=== PATIENT | female | born 1935 | race Caucasian/White ===

== ENCOUNTER 2017-04-03 15:44 | Emergency (ER) | payer MEDICARE ==
[2017-04-03 15:52] VITALS: BP 138/83
--- NOTE | 2017-04-03 16:26 | XRAY Report ---
EXAM: LEFT WRIST RADIOGRAPHY EXAM DATE: 04/03/2017 04:07 PM. CLINICAL HISTORY: Fell on outstretched hand this morning. Pain and swelling. COMPARISON: None. TECHNIQUE: 4 views. FINDINGS: Bones: Fracture of the radial metaphysis with volar impaction. Articular extension noted. No other ac ely sh[place] traumatic or destructive bony abnormalities. Simple cyst noted in the lunate. Joints: Degenerative narrowing and sclerosis of the scaphomultangular joints and first carpometacarpa l joint. No subluxations. Soft Tissues: Calcification of the joint or fibrocartilage. IMPRESSION: Fracture of the radial metaphysis with mild volar impaction and with intra-articular exte nsion. [facility] Referring Provider Line: [phone] SITE ID: [id number]
--- NOTE | 2017-04-03 16:26 | XRAY Preliminary Report ---
Exam: XR WRIST 4 VIEW LT IMPRESSION: Fracture of the radial metaphysis with mild volar impaction and with intra-articular exte nsion. [facility] SITE ID: [id number]
--- NOTE | 2017-04-03 16:49 | ED Physician Documentation ---
PD HPI UPPER EXT INJURY - Stated complaint Stated Complaint: GLF/L WRIST INJ - Chief complaint Chief Complaint: Ext Problem - History obtained from History obtained from: Patient - History of Present Illness Location: Other (Simple trip and fall this morning injuring her left wrist, no other injuries. She has moderate pain but declines pain medication.) Review of Systems Constitutional: denies: Fever, Chills Cardiac: reports: Reviewed and negative Respiratory: reports: Reviewed and negative PD PAST MEDICAL HISTORY - Past Medical History Past Medical History: No - Past Surgical History Past Surgical History: Yes - Present Medications Home Medications: Ambulatory Orders Medication Instructions Recorded Confirmed No Known Home Medications [No 04/03/17 04/03/17 Known Home Medications] - Allergies Allergies/Adverse Reactions: Allergies Allergy/AdvReac Type Severity Reaction Status Date / Time Sulfa (Sulfonamide Allergy Unknown Verified 04/03/17 15:52 Antibiotics) - Social History Does the pt smoke?: No Smoking Status: Never smoker Does the pt drink ETOH?: No Does the pt have substance abuse?: No - Immunizations Immunizations are current?: Yes - POLST Patient has POLST: No PD ED PE NORMAL - Vitals Vital signs reviewed: Yes - General General: Alert and oriented X 3, No acute distress - Neck Neck: Supple, no meningeal sign, No bony TTP - Extremities Extremities: Other (Tender to the left distal radius with swelling and loss of range of motion due to pain but NVI in the hand.) - Neuro Neuro: Alert and oriented X 3, Normal speech Results - Vitals Vitals: Vital Signs - 24 hr 04/03/17 15:49 Temperature 36.7 C Heart Rate 86 Respiratory 16 Rate Blood Pressure 138/83 H O2 Saturation 97 Oxygen O2 Source Room air - Rads (name of study) Left wrist Radiology: EMP read contemporaneously (Impacted left distal radius fracture) Procedures - Splint (location) L wrist Splint applied by: Tech Type of splint: Short arm, Volar cock up Other: Patient tolerated well, No complications, Neurovascular intact PD MEDICAL DECISION MAKING - ED course ED course: She declines pain medication. Departure - Departure Disposition: 01 Home, Self Care Clinical Impression: Fracture of left distal radius Qualifiers: Encounter type: initial encounter Fracture type: closed Fracture morphology: other intra-articular Qualified Code(s): S52.572A - Other intraarticular fracture of lower end of left radius, initial encounter for closed fracture Condition: Good Record reviewed to determine appropriate education?: Yes Instructions: ED Fx Forearm Radius Ulna No Redu Requ Follow-Up: [facility] [Provider Group] - Within 1 week Comments: Tylenol as needed for pain, keep the splint on and dry. Follow-up with the orthopedic surgeon, call them tomorrow or Friday for an appointment within a week. Your blood pressure was elevated today on check into the emergency department. This does not mean that you have hypertension, it is a common phenomenon to come to the emergency department and have elevated blood pressure. I recommend that you see your primary care physician within the week to have it rechecked when you are feeling better.
== END 2017-04-03 16:58 | disposition home or self-care (01) ==
LOC: ED 15:44
DX: S52.572A Other intraarticular fracture of lower end of left radius, initial encounter for closed fracture (principal); W01.0XXA Fall on same level from slipping, tripping and stumbling without subsequent striking against object, initial encounter; R03.0 Elevated blood-pressure reading, without diagnosis of hypertension
CPT/HCPCS: 29125; 99282

== ENCOUNTER 2019-12-29 15:14 | Outpatient (CLI) | payer MEDICARE ==
--- NOTE | 2019-12-29 16:27 | XRAY Report ---
PROCEDURE: Sacrum/Coccyx INDICATIONS: THORACIC LOW BACK PAIN,UNSPECIFED TECHNIQUE: 3 views of the sacrum and coccyx acquired. COMPARISON: None. FINDINGS: Bones: No fractures or dislocations. No suspicious bony lesions. Osteoarthritic changes in bilatera l sacroiliac joints and hip joints are seen. Degenerative disc disease is seen in visualized lower lenka mbar spine. Soft tissues: Visualized bowel gas pattern is normal. No suspicious soft tissue densities. IMPRESSION: No sacrococcygeal fracture. Osteoarthritis involving the pelvis. 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 Reviewed by: Jordon Levi MD on 12/29/2019 4:25 PM PDT Approved by: Jordon Levi MD on 12/29/2019 4:25 PM PDT Station ID: [id number]
--- NOTE | 2019-12-29 16:28 | XRAY Report ---
PROCEDURE: Lumbar Spine 2 View INDICATIONS: THORACIC LOW BACK PAIN,UNSPECIFED TECHNIQUE: 2 views of the lumbar spine were acquired. COMPARISON: None. FINDINGS: Bones: 5 [id number] vertebrae are present. There is leftward curvature of thoracolumbar spine centered at T11-12 level. Age indeterminant superior endplate compression deformity at T11, T12 and L 1 vertebral bodies are seen. Degenerative endplate changes are noted throughout lumbar spine. Bilate ral facet arthrosis at L3-4 through L5-S1 levels also noted. No vertebral body compression fractures. No suspicious bony lesions. Soft tissues: Overlying bowel gas pattern is normal. No suspicious soft tissue calcifications. IMPRESSION: Age indeterminant superior endplate compression deformities at T11-L1 levels. Mild leftw val curvature of thoracolumbar spine. Degenerative disc disease throughout lumbar spine more prominen t at L3-4 through L5-S1 levels. Reviewed by: Jordon Levi MD on 12/29/2019 4:27 PM PDT Approved by: Jordon Levi MD on 12/29/2019 4:27 PM PDT Station ID: [id number]
--- NOTE | 2019-12-29 16:30 | XRAY Report ---
PROCEDURE: Thoracic Spine 3 View INDICATIONS: THORACIC LOW BACK PAIN,UNSPECIFED TECHNIQUE: 3 views of the thoracic spine were acquired. COMPARISON: None. FINDINGS: Bones: Age indeterminant anterior wedge compression deformity involving T10 vertebral body is seen wi th up to 60% loss of T10 vertebral body height anteriorly. Mild superior endplate compression deformi ties are also noted at T11-L1 levels with mild loss of vertebral body height. Moderate kyphosis cente red at T8-9 level is seen. Degenerative endplate changes throughout the thoracic spine is seen. No s uspicious bony lesions. 12 pairs of ribs are noted, and appear intact where visualized. Soft tissues: No paravertebral stripe thickening. IMPRESSION: 1. Age-indeterminate anterior wedge compression deformity at T10 level with up to 60% loss of T10 alida tebral body height. Moderate kyphosis centered at T8-9 level. 2. Age-indeterminate mild superior endplate compression at T11-L1 levels. 3. Degenerative disc disease throughout thoracic spine. Reviewed by: Jordon Levi MD on 12/29/2019 4:29 PM PDT Approved by: Jordon Levi MD on 12/29/2019 4:29 PM PDT Station ID: [id number]
== END 2019-12-29 15:15 | disposition home or self-care (01) ==
LOC: DI 15:14
PROVIDERS: ATTEND Physician Assistant
DX: M51.34 Other intervertebral disc degeneration, thoracic region (principal); M51.37 Other intervertebral disc degeneration, lumbosacral region; M40.294 Other kyphosis, thoracic region; M48.54XA Collapsed vertebra, not elsewhere classified, thoracic region, initial encounter for fracture; M62.838 Other muscle spasm
CPT/HCPCS: 72072; 72100; 72220

== ENCOUNTER 2021-08-16 10:59 | Outpatient (CLI) | payer MEDICARE | END 2021-08-16 11:00 | disposition short-term general hospital (02) | LOC: EMS 10:59 | DX: M25.551 Pain in right hip (principal); M25.512 Pain in left shoulder; W18.30XA Fall on same level, unspecified, initial encounter; Y92.008 Other place in unspecified non-institutional (private) residence as the place of occurrence of the external cause | CPT/HCPCS: A0425; A0429 ==